=== PATIENT | female | born 1955 | race Caucasian/White ===

== ENCOUNTER 2019-04-29 18:11 | Inpatient (IN) | payer MEDICARE, OTHER, SELFPAY ==
[2019-04-29 18:12] VITALS: BP 169/82; PULSE 88; RESP 16; TEMP 36.7; O2SAT 96; BMI 22.1
--- NOTE | 2019-04-29 18:36 | CT_ITS ---
STUDY: CT ABDOMEN AND PELVIS WITHOUT CONTRAST REASON FOR EXAM: Female, 64 years old. Abdominal distention RADIATION DOSAGE (If Supplied By Facility): DLP = ( 380.46 ) mGycm TECHNIQUE: Transaxial images were obtained from the dome of the diaphragm to the symphysis pubis without oral contrast, and without intravenous contrast. Sagittal and coronal images were reconstructed. Individualized dose optimization techniques were used for this CT. COMPARISON: None. FINDINGS: Evaluation of the abdominal viscera is limited in the absence of intravenous contrast. Bibasilar atelectasis is present. The visualized portions of the heart and pericardium are within normal limits. There are no calcified gallstones present. The liver demonstrates an unremarkable unenhanced appearance. The spleen is normal in size. The pancreas demonstrates an unremarkable unenhanced appearance. The adrenal glands are within normal limits. There are no obstructing renal stones. There is mild to moderate bilateral hydroureteronephrosis. There is severe urinary bladder distention. Small bubble of gas in the urinary bladder likely secondary to instrumentation. Normal visualized stomach. There is no bowel obstruction or inflammation. The aorta is normal in caliber. There is no abdominal or pelvic free air, free fluid, fluid collection or lymphadenopathy. There are no destructive osseous lesions. CT/Abdomen/Pelvis without Cont IMPRESSION: Mild to moderate bilateral hydroureteronephrosis and severe urinary bladder distention. Query bladder outlet restriction. Small bubble of gas in the urinary bladder likely secondary to instrumentation. Correlate clinically. Electronically Signed: Max Marsh, at 20:07 EST Tel , Service support ,
--- NOTE | 2019-04-29 18:37 | ED.VISSUMM ---
- ER Visit Summary Date of Service: 04/29/19 Chief Complaint: Nausea and vomiting status post recent bladder surgery History of Present Illness: The patient is a 64 F history of hypertension. On Thursday at [facility] [place] she had bladder prolapse surgery done by Dr. Jaja Martinez. She went home the same day. Since then she has had nausea and vomiting. With decreased oral intake. Feels dehydrated. Really denies any significant abdominal pain but says it just does not feel right. She is able to urinate. She denies any fever. No chills. No diarrhea. No melena. Physical Examination: Older female no acute distress. Vital signs are stable. She is afebrile. She does not look septic or toxic. H EENT exam dry mucous members otherwise unremarkable. Neck nontender no lymphadenopathy. Lungs clear to auscultation bilaterally. Heart regular rhythm no murmur. Abdomen soft. Mildly distended. Positive bowel sounds. No peritoneal signs. Right upper right lower quadrant unremarkable. Extremities moves all 4. Nontender no edema. Neurovascular intact. Back nontender. Neurologically she is awake alert with no focal motor deficits. Test Results: CBC shows a white count of 10. Hemoglobin 12. No bands. Electrolytes significant abnormalities including a sodium of 119. Chloride of 80. Normal gap of 8 BUN 20 creatinine 2.18 consistent with acute renal injury. Calcium at 12.5. Liver enzymes and lipase normal. UA no signs of infection. CAT scan abdomen pelvis without contrast due to her creatinine showed a very distended bladder with bilateral hydronephrosis of the kidneys and consistent with bladder outlet obstruction. Read by the radiologist and reviewed by me. Emergency Department Course and Treatment: Clinically patient appears mildly dehydrated. Treated with IV fluids times a liter. IV Zofran for nausea. CAT scan labs being obtained. Treatment Plan: Nursing placed a Linn catheter patient put out about 2-1/2 L of yellow urine. Bladder was no longer distended. I spoke with the patient's uro-precision dancer Dr. Jaja Martinez of [facility] [place]. If possible she would like me to have the patient admitted here since this is primarily an electrolyte issue and the Linn has now decompressed her bladder and she will follow-up with an outpatient. I will speak to my hospitalist. If they are concerned about this I will have them and Dr. Martinez discuss a plan. Currently at 2140 the patient is doing very well. She received a second dose of Zofran for nausea. Disposition: [] Impression: Acute nausea and vomiting Acute bladder outlet obstruction status post bladder sling surgery Acute dehydration Acute kidney injury Acute hyponatremia and electrolyte abnormalities This note was generated with [employer] dictation software. It may contain incorrect words, spelling, and punctuation that were not noted in review of the chart prior to signing ED Disposition - Plan for ED Patient: Referrals: Wes Moore III, MD [Primary Care Provider] -
[2019-04-29 19:03] LABS: POSITIVE COUNT YES
[2019-04-29] MEDS: 0.9% Normal Saline 1,000 ML 1000 ML IV (19:05)
[2019-04-29] MEDS: Ondansetron 4 MG/2 ML Vial IV ×2 (19:05→20:30)
[2019-04-29 19:18] LABS: Absolute Lymphocyte Count 0.88 X10^3/uL (0.83-4.51); Absolute Neutrophil Count 8.3 X10^3/uL (2.0-7.7); Basophil# 0.02 X10^3/uL; Basophil% 0.2 % (0-1); Eosinophil# 0.06 X10^3/uL; Eosinophils% 0.6 % (0-5); Hematocrit 34.4 % (37-47); Hemoglobin 12.8 g/dL (12.0-15.0); Lymphocyte # 0.88 X10^3/ul (4.0); Lymphocyte % 8.3 % (19-41); Mean Corp Hgb Conc 37.2 g/dL (32-36); Mean Corpuscular Hgb 32.7 pg (27.0-32.0); Mean Corpuscular Volume 87.8 fL (81-99); Monocyte# 1.28 X10^3/uL; Monocyte% 12.1 % (0-10); NRBC Flagged by Analyzer 0 % (0-5); Neutrophil # 8.32 X10^3/uL (2.7-7.7); Neutrophil % 78.3 % (47-70); Platelet Count 203 K/mm3 (150-450); RBC Distribution Width CV 11.6 % (11.6-14.6); RBC Distribution Width SD 37.4 fl (35.1-43.9); Red Blood Count 3.92 M/mm3 (4.2-5.4); White Blood Count 10.6 K/mm3 (4.4-11.0)
[2019-04-29 19:28] LABS: AST(SGOT) 26 U/L (15-37); Alanine Aminotransfer ALT/SGPT 28 U/L (13-56); Albumin, Serum 2.9 g/dL (3.2-5.0); Alkaline Phosphatase 64 U/L (45-117); Anion Gap 8 (5-15); BUN 20 mg/dL (7-18); BUN/Creat Ratio 9.2 RATIO (10-20); Bilirubin, Direct 0.19 mg/dL (0.00-0.30); Calcium,Total 12.5 mg/dL (8.5-10.1); Chloride 80 mmol/L (98-107); Creatinine, Serum 2.18 mg/dL (0.55-1.02); EST Glomerular Filtration Rate 24 mL/min (>60); Est Glom Filt Rate - Afr Amer 29 mL/min (>60); Globulin 3.6 g/dL (2.2-4.2); Glucose 121 mg/dL (74-106); Lipase 38 U/L (73-393); Potassium 4.3 mmol/L (3.5-5.1); Protein, Total 6.5 g/dL (6.4-8.2)
[2019-04-29 19:32] LABS: Sodium Level 119 mmol/L (136-145)
[2019-04-29 20:12] VITALS: BP 167/72; PULSE 82; RESP 16; O2SAT 96
[2019-04-29 20:14] LABS: Mucous, Urine 0 SEEN /hpf (<or=2+)
[2019-04-29 20:28] LABS: Color, Urine Yellow (Yellow); Glucose, Dipstick Normal (Normal); Ketone-Dipstick Negative (Negative); Leukocyte Esterase-Dipstick 25 /ul (Negative); Nitrite-Dipstick Negative (Negative); Occult Blood-Urine 10 /ul (Negative); Protein-Dipstick Negative (Negative); Specific Gravity, Urine 1.015 (1.002-1.030); Urine Bilirubin Dipstick Negative (Negative); Urine Clarity Sl. Cloudy (Clear); Urine Urobilinogen Normal (Normal)
[2019-04-29] MEDS: 0.9% Normal Saline 1,000 ML 250 ML IV (20:30)
[2019-04-29 20:41] LABS: Amorphous Sediment 1+ URATE; Bacteria RARE /hpf (None Seen); Red Blood Cells-Urine 0-5 SEEN /hpf (0-5); Squamous Epithelial Cells - UA 0-5 SEEN /hpf (5-10); White Blood Cells 0-5 SEEN /hpf (0-5)
--- NOTE | 2019-04-29 21:57 | HP.PCM_ITS ---
Problem List (1) Hydroureteronephrosis Status: Acute (2) Hyponatremia Status: Acute History of Present Illness Date of Admission: 04/29/19 Chief Complaint: Nausea and vomiting The patient is a 64 year old F with a significant history of hypertension; and who had bladder prolapse surgery on 04/25/2019 presenting at emergency department with nausea and vomiting that started a day after the bladder prolapse surgery (04/26/2019). Patient had the bladder prolapse surgery at [facility] [place] with Dr. Jaja Martinez. After the procedure patient was sent home on a Foster catheter. The Foster catheter was removed the next day. Patient was started on intermittent straight catheterization. However she was unable to do the intermittent straight catheterization. She had a decreased urine output. Associated with her symptoms is bilateral flank pain; and some heaviness in her abdomen; and a feeling of heartburn.. Patient called her uro-body and fender mechanic apprentice and she was instructed to come to emergency department. At the emergency department her sodium and chloride was low. Her creatinine was severely elevated. CT of her abdomen and pelvis showed bilateral hydroureteronephrosis. At the emergency department foster catheter was placed. Emergent department doctor discussed the case with outpatient urogynecologist who did the surgery. Urogynecology's felt that there was no need to admit kulwant ent to [facility] and patient electrolytes can be corrected at the hospital. Past Medical History Medical History: Medical History (Last Reviewed 04/29/19 @ 23:[address] Suman Gupta MD) Hypertension I10 Allergies No Known Allergies Allergy (Verified 04/29/19 19:06) Home Medications: Ambulatory Orders Medication Instructions Recorded Acetaminophen [Tylenol Extra 500 - 1,000 mg PO Q6H PRN PRN 04/29/19 Strength] Ibuprofen 800 mg PO Q8H PRN 04/29/19 Lisinopril 5 mg PO DAILY 04/29/19 Loratadine [Claritin] 10 mg PO DAILY 04/29/19 [place]-3 Fatty Acids/Fish Oil [Fish 1 cap PO DAILY 04/29/19 Oil 1,000 mg Capsule] Ondansetron HCl 4 mg PO DAILY 04/29/19 Surgical History: hysterectomy, - - Fusion of the big left toe Lives: Spouse/ Significant Other Smoking Status: Never smoker Alcohol: Occasional - *Family History Maternal History Items: Cancer - Kidney cancer and prostate cancer Paternal History Items: Cancer - Breast cancer Review of Systems Constitutional: Reports: Anorexia. Denies: Chills, Fever, Weight Change HEENT: Denies: Head Aches, Sinus Congestion, Sinus Drainage Cardiovascular: Denies: Chest Pain, Palpitations Respiratory: Denies: Cough, Shortness of breath at rest, Sputum production Gastrointestinal: Reports: Abdominal Pain, Dyspepsia, Nausea, Vomiting Genitourinary: Reports: Retention Musculoskeletal: Denies: Joint Pain, Joint Tenderness Skin: Denies: Rash, Wounds Neurological: Denies: Numbness, Tingling, Focal weakness Psychiatric: Denies: Anxiety, Depression, Homicidal Ideations, Suicidal Ideations Hematologic/ Lymphatic: Denies: Easy Bruising, Easy Bleeding VTE Information - Inpt Only VTE Present on Admission: No VTE Mechan Device Prophylaxis: None VTE Pharm Prophylaxis ordered?: Yes Patient Problems: Active and Suspected Problems (Last Updated 04/29/19 @ 23:[address] Suman Gupta MD) Hydroureteronephrosis (Acute) Hyponatremia (Acute) - Physical Exam Vitals/I&O's: Vital Signs Temp Pulse Resp BP Pulse Ox 98.1 F 82 16 167/72 H 96 04/29/19 18:12 04/29/19 20:12 04/29/19 20:12 04/29/19 20:12 04/29/19 20:12 Oxygen Delivery Method Room Air Weight: 56.699 kg Body Mass Index (BMI) 22.1 Intake and Output for Last 24 Hours 04/27/19 04/28/19 04/29/19 23:59 23:59 23:59 Intake Total 1000 / 1000 Output Total 2450 / 2450 Balance -1450 / -1450 General: Alert, Oriented x3, Cooperative HEENT: Atraumatic, PERRLA, EOMI, Normocephalic Neck: Supple, No JVD, Negative Carotid Bruits Lungs: Clear to auscultation, Normal air movement Cardiovascular: Regular rate, Normal S1, Normal S2, No murmurs Abdomen: Bowel Sounds Present, Soft, Non Tender Extremities: No edema, Capillary Refill Less than 3 Seconds Skin: No rashes, No breakdown Musculoskeletal: No Tenderness to Palpation of Joints or Extremities Neurological: Cranial nerves II-XII grossly intact Psych/Mental Status: Normal Affect, Appropriate Laboratory Results 04/29/19 18:55: WBC 10.6, RBC 3.92 L, Hgb 12.8, Hct 34.4 L, MCV 87.8, MCH 32.7 H , MCHC 37.2 H, RDW Std Deviation 37.4, RDW Coeff of Ade 11.6, Plt Count 203, MPV 9.0, Immature Gran % (Auto) 0.500, Neut % (Auto) 78.3 H, Lymph % (Auto) 8.3 L, Delta % (Auto) 12.1 H, Eos % (Auto) 0.6, Baso % (Auto) 0.2, Absolute Neuts (auto) 8.3 H, Absolute Lymphs (auto) 0.88, Nucleated RBC % 0 04/29/19 18:55: Sodium 119 L*, Potassium 4.3, Chloride 80 L, Carbon Dioxide 31.0, Anion Gap 8, BUN 20 H, Creatinine 2.18 H, Estim Creat Clear Calc 21.00, Est GFR (MDRD) Af Amer 29 L, Est GFR (MDRD) Non-Af 24 L, BUN/Creatinine Ratio 9.2 L, Glucose 121 H, Calcium 12.5 H, Total Bilirubin 0.60, Direct Bilirubin 0.19, AST 26, ALT 28, Alkaline Phosphatase 64, Total Protein 6.5, Albumin 2.9 L, Globulin 3.6, Lipase 38 L 04/29/19 20:00: Urine Color Yellow, Urine Clarity Sl. Cloudy, Urine pH 6.0, Ur Specific [place] 1.015, Urine Protein Negative, Urine Glucose (UA) Normal, Urine Ketones Negative, Urine Occult Blood 10 H, Urine Nitrite Negative, Urine Bilirubin Negative, Urine Urobilinogen Normal, Ur Leukocyte Esterase 25 H, Urine RBC 0-5 SEEN, Urine WBC 0-5 SEEN, Ur Squamous Epith Cells 0-5 SEEN, Amorphous Sediment 1+ URATE, Urine Bacteria RARE, Urine Mucus 0 SEEN Current Medications Sodium Chloride () 1,000 mls @ 250 mls/hr IV .Q4H KATELYNN Last Admin: 04/29/19 20:30 Dose: 250 mls/hr Documented by: Assessment/Plan All Active Problems (Last Updated 04/29/19 @ 23:[address] Suman Gupta MD) Hydroureteronephrosis (Acute) Hyponatremia (Acute) The patient is a 64 year old F with a significant history of hypertension who h ad bladder prolapse surgery on 04/25/2019 presents emergency department with nausea and vomiting that started a day after the procedure (04/26/2019) and found to have hyponatremia; elevated creatinine and bilateral hydroureter and necrosis. Hyponatremia On presentation sodium was 119. Likely hypovolemia from nausea and vomiting. Received normal saline 1 L bolus in emergency department and was started normal saline 250 mL's per hour at emergency department. Will decrease normal saline rate to 50 mL's per hour and attempt to correct sodium by 8 to 10 mEq in next 24 hours. Check BMP every 4 hours. EMELI On presentation her creatinine was 2.18. Review of community records show that on 04/21/2019 her creatinine was 0.55. Likely combination of prerenal and obstructive uropathy. Foster catheter in place. Emergency department doctor discussed the case with Dr. Person, urologist who recommended that a Foster catheter should remain in place and patient can be discharged with Foster catheter. Dr. Person, urologist can be consulted if needed. However treatment will basically be as above. Hold NSAIDs and lisinopril. Avoid nephrotoxic's. Trend BMP. Hydroureteronephrosis Foster catheter in place. Consider discharging on Foster catheter and for patient to follow-up with urogynecologist. GERD Likely secondary to nausea and vomiting. Protonix ordered. Nausea and vomiting Supportive treatment with IV fluids as above. Antiemetics with Zofran and Compazine as needed. Patient feels she can start regular diet. Regular diet ordered. Hypertension On presentation blood pressure was not within goal. Lisinopril held. Start patient on PRN hydralazine. Trend blood pressures. DVT prophylaxis Subcutaneous Lovenox. Code Visit Inpatient E&M: 27048 Init Hosp L3
[2019-04-29 22:00] VITALS: BP 139/72; PULSE 88; RESP 18; O2SAT 95
[2019-04-29 22:10] VITALS: BP 139/72; PULSE 83; RESP 16; O2SAT 95
[2019-04-29 23:30] VITALS: BP 150/82; PULSE 86; RESP 18; TEMP 36.9; O2SAT 95
[2019-04-29 23:35] VITALS: PULSE 86
[2019-04-29 23:51] VITALS: BMI 23.0
[2019-04-30] VITALS (13 sets, daily range): BP systolic 101–144; BP diastolic 57–74; PULSE 74–90; RESP 16–18; TEMP 36.8–37.1; O2SAT 91–96; BMI 23.0
[2019-04-30] MEDS: 0.9% Normal Saline 1,000 ML 50 ML IV (00:15)
[2019-04-30] MEDS: 0.9% Saline Lock 10 ML Syringe IV ×2 (00:15→21:04)
[2019-04-30] MEDS: Acetaminophen 325 MG Tablet 650 MG PO ×3 (00:22→17:47)
[2019-04-30 00:59] LABS: Anion Gap 6 (5-15); BUN 13 mg/dL (7-18); BUN/Creat Ratio 10.9 RATIO (10-20); Calcium,Total 10.6 mg/dL (8.5-10.1); Chloride 96 mmol/L (98-107); Creatinine, Serum 1.19 mg/dL (0.55-1.02); EST Glomerular Filtration Rate 48 mL/min (>60); Est Glom Filt Rate - Afr Amer 58 mL/min (>60); Estimated Creatinine Clearance 38.47 ml/min; Glucose 107 mg/dL (74-106); Potassium 3.8 mmol/L (3.5-5.1); Sodium Level 131 mmol/L (136-145)
[2019-04-30 03:46] LABS: Anion Gap 6 (5-15); BUN 12 mg/dL (7-18); BUN/Creat Ratio 14.5 RATIO (10-20); Calcium,Total 9.4 mg/dL (8.5-10.1); Chloride 96 mmol/L (98-107); Creatinine, Serum 0.83 mg/dL (0.55-1.02); EST Glomerular Filtration Rate 73 mL/min (>60); Est Glom Filt Rate - Afr Amer 89 mL/min (>60); Estimated Creatinine Clearance 55.15 ml/min; Glucose 100 mg/dL (74-106); Potassium 3.6 mmol/L (3.5-5.1); Sodium Level 133 mmol/L (136-145)
[2019-04-30 07:16] LABS: Anion Gap 6 (5-15); BUN 9 mg/dL (7-18); BUN/Creat Ratio 13.1 RATIO (10-20); Calcium,Total 9.2 mg/dL (8.5-10.1); Chloride 96 mmol/L (98-107); Creatinine, Serum 0.69 mg/dL (0.55-1.02); EST Glomerular Filtration Rate 91 mL/min (>60); Est Glom Filt Rate - Afr Amer 110 mL/min (>60); Estimated Creatinine Clearance 45.78 ml/min; Glucose 96 mg/dL (74-106); Potassium 3.3 mmol/L (3.5-5.1); Sodium Level 133 mmol/L (136-145)
[2019-04-30] MEDS: Enoxaparin 30 MG/0.3 ML Syringe SC (09:09)
--- NOTE | 2019-04-30 10:56 | PN_ITS ---
Patient Problems: Active and Suspected Problems (Last Reviewed 04/29/19 @ 23:[address] Suman Gupta MD) Hydroureteronephrosis (Acute) Hyponatremia (Acute) Subjective: Patient seen and examined. She was admitted through the ED with a complaint of nausea and vomiting. She had her bladder prolapse surgery on 04/25/2019 at [facility] in [place] and was subsequently discharged home with a Linn catheter in place. Linn catheter was subsequently removed and she was supposed to be doing intermittent straight cath. However she had not been having adequate urine output and also started having bilateral flank pain with abdominal pain. She called a uro-grounds and nursery specialist and was told to come to the ED where she was found to have low sodium of 119. CT of the abdomen and pelvis done showed bilateral hydroureteronephrosis. Patient seen and examined. She feels much better today. She denied any nausea, vomiting,diarrhea, fever chills or shortness of breath. Review of systems otherwise negative. She was able to eat breakfast today. Labs and vitals reviewed. Sodium is up to 133. Vitals/I&O's: Vital Signs Temp Pulse Resp BP Pulse Ox 98.2 F 85 18 125/57 H 94 04/30/19 09:06 04/30/19 10:50 04/30/19 09:06 04/30/19 09:06 04/30/19 09:06 Oxygen Delivery Method Room Air Weight: 129 lb 13.636 oz Body Mass Index (BMI) 23.0 Intake and Output for Last 24 Hours 04/28/19 04/29/19 04/30/19 23:59 23:59 23:59 Intake Total 1759.17 / 1759.17 1340.00 / 1340.00 Output Total 3250 / 3250 550 / 550 Balance -1490.83 / -1490.83 790.00 / 790.00 General: Alert, Oriented x3, Cooperative, No apparent distress HEENT: Atraumatic, PERRLA, EOMI, Normocephalic Oral: Moist Mucosa Neck: Supple, No JVD, Negative Carotid Bruits Lungs: Clear to auscultation, Normal air movement, No rhonchi, No wheeze, No rales Cardiovascular: Regular rate, Regular Rhythm, Normal S1, Normal S2, No murmurs Abdomen: Bowel Sounds Present, Soft, Non Tender, Non-Distended, No Hepato- splenomegaly Extremities: No clubbing, No cyanosis, No edema, Capillary Refill Less than 3 Seconds Skin: No rashes, No breakdown Musculoskeletal: No Tenderness to Palpation of Joints or Extremities Lymphatic: No Cervical, Supraclavicular, or Inguinal Adenopathy Neurological: Cranial nerves II-XII grossly intact, Neuro grossly intact, Motor Exam 5/5 strength throughout Psych/Mental Status: Normal Affect, Appropriate, Alert and oriented to time, place, person, mood and affect Laboratory Results 04/29/19 18:55: WBC 10.6, RBC 3.92 L, Hgb 12.8, Hct 34.4 L, MCV 87.8, MCH 32.7 H , MCHC 37.2 H, RDW Std Deviation 37.4, RDW Coeff of Ade 11.6, Plt Count 203, MPV 9.0, Immature Gran % (Auto) 0.500, Neut % (Auto) 78.3 H, Lymph % (Auto) 8.3 L, [place] % (Auto) 12.1 H, Eos % (Auto) 0.6, Baso % (Auto) 0.2, Absolute Neuts (auto) 8.3 H, Absolute Lymphs (auto) 0.88, Nucleated RBC % 0 04/29/19 18:55: Sodium 119 L*, Potassium 4.3, Chloride 80 L, Carbon Dioxide 31.0, Anion Gap 8, BUN 20 H, Creatinine 2.18 H, Estim Creat Clear Calc 21.00, Est GFR (MDRD) Af Amer 29 L, Est GFR (MDRD) Non-Af 24 L, BUN/Creatinine Ratio 9.2 L, Glucose 121 H, Calcium 12.5 H, Total Bilirubin 0.60, Direct Bilirubin 0.19, AST 26, ALT 28, Alkaline Phosphatase 64, Total Protein 6.5, Albumin 2.9 L, Globulin 3.6, Lipase 38 L 04/29/19 20:00: Urine Color Yellow, Urine Clarity Sl. Cloudy, Urine pH 6.0, Ur Specific [place] 1.015, Urine Protein Negative, Urine Glucose (UA) Normal, Urine Ketones Negative, Urine Occult Blood 10 H, Urine Nitrite Negative, Urine Bilirubin Negative, Urine Urobilinogen Normal, Ur Leukocyte Esterase 25 H, Urine RBC 0-5 SEEN, Urine WBC 0-5 SEEN, Ur Squamous Epith Cells 0-5 SEEN, Amorphous Sediment 1+ URATE, Urine Bacteria RARE, Urine Mucus 0 SEEN 04/30/19 00:10: Sodium 131 L, Potassium 3.8, Chloride 96 L, Carbon Dioxide 29.0, Anion Gap 6, BUN 13, Creatinine 1.19 H, Estim Creat Clear Calc 38.47, Est GFR (MDRD) Af Amer 58 L, Est GFR (MDRD) Non-Af 48 L, BUN/Creatinine Ratio 10.9, Glucose 107 H, Calcium 10.6 H 04/30/19 03:10: Sodium 133 L, Potassium 3.6, Chloride 96 L, Carbon Dioxide 31.0, Anion Gap 6, BUN 12, Creatinine 0.83, Estim Creat Clear Calc 55.15, Est GFR (MDRD) Af Amer 89, Est GFR (MDRD) Non-Af 73, BUN/Creatinine Ratio 14.5, Glucose 100, Calcium 9.4 04/30/19 06:45: Sodium 133 L, Potassium 3.3 L, Chloride 96 L, Carbon Dioxide 31.0, Anion Gap 6, BUN 9, Creatinine 0.69, Estim Creat Clear Calc 45.78, Est GFR (MDRD) Af Amer 110, Est GFR (MDRD) Non-Af 91, BUN/Creatinine Ratio 13.1, Glucose 96, Calcium 9.2 04/30/19 10:35: Sodium Pending, Potassium Pending, Chloride Pending, Carbon Dioxide Pending, Anion Gap Pending, BUN Pending, Creatinine Pending, Est GFR (MDRD) Af Amer Pending, Est GFR (MDRD) Non-Af Pending, BUN/Creatinine Ratio Pending, Glucose Pending, Calcium Pending Diagnostic Data Abdomen/Pelvis CT 04/29/19 18:36 IMPRESSION: Mild to moderate bilateral hydroureteronephrosis and severe urinary bladder distention. Query bladder outlet restriction. Small bubble of gas in the urinary bladder likely secondary to instrumentation. Correlate clinically. Electronically Signed: Max Marsh, at 20:07 EST Tel , Service support , Current Medications Acetaminophen (Tylenol) 650 mg PO Q6H PRN PRN PRN Reason: Pain Score 1-10/Temp > 100.7 F Last Admin: 04/30/19 07:03 Dose: 650 mg Documented by: Enoxaparin Sodium (Lovenox) 30 mg SC DAILY [facility] Last Admin: 04/30/19 09:09 Dose: 30 mg Documented by: Glucagon () 1 mg IM .X1 PRN PRN Reason: Hypoglycemia Hydralazine HCl (Apresoline Iv) 5 mg IV Q4H PRN PRN PRN Reason: SBP > 160 Pantoprazole Sodium 40 mg/ (Sodium Chloride) 110 mls @ 330 mls/hr IV Q24 [facility] Last Infusion: 04/30/19 09:47 Dose: Infused Documented by: Dextrose (Dextrose 10%-Water) 250 mls @ 999 mls/hr IV .Q16M PRN; Protocol PRN Reason: HYPOGLYCEMIA Dextrose () 1,000 mls @ 50 mls/hr IV .Q20H [facility] Last Admin: 04/30/19 09:18 Dose: 50 mls/hr Documented by: Loratadine (Claritin) 10 mg PO DAILY PRN PRN PRN Reason: allergies Nutritional Formula (Lactose Free) (Ensure Enlive) 120 ml PO 4X/DAY [facility] Last Admin: 04/30/19 09:11 Dose: 120 ml Documented by: Ondansetron HCl (Zofran) 4 mg IV Q6H PRN PRN PRN Reason: NAUSEA/VOMITING Prochlorperazine Edisylate (Compazine Iv) 5 mg IV Q4H PRN PRN PRN Reason: Breakthrough Nausea/Vomiting Sodium Chloride () 10 - 40 ml IV UD PRN PRN Reason: SALINE FLUSH Last Admin: 04/30/19 00:15 Dose: 10 ml Documented by: STROKE Vital Signs/Narrative: Vital Signs Temp Pulse Resp BP Pulse Ox 04/30/19 10:50 85 04/30/19 09:06 98.2 F 84 18 125/57 H 94 04/30/19 07:54 84 18 04/30/19 07:07 80 04/30/19 07:01 91 Medical Necessity - Tobacco Use Smoking Status: Never smoker Assessment/Plan All Active Problems (Last Reviewed 04/29/19 @ 23:[address] Suman Gupta MD) Hydroureteronephrosis (Acute) Hyponatremia (Acute) 1. Acute hyponatremia * likely due to nausea adn vomiting * Sodium was 119 on admission and was up to 133 this morning. The patient was started on D5 water and sodium was rechecked, it had trended up slightly to 134. * This represents overcorrection of the sodium as aim for sodium correction should be ~ 126, per discussion with nephrology * will start patient on IV DDAVP 2mcg every 4 hours x 24 hours. check BMP q 4 hourly. Increase IV D5 Water to 200ml/hr for the next 2 hours and recheck sodium * nephrology consulted-personally discussed case with Dr. Fox on phone. * 2. Hydroureteronephrosis * CT of the abdomen and pelvis on admission showed mild to moderate bilateral hydronephrosis and severe urinary bladder distention * Currently has a Linn catheter in place. * Urology on board. Awaiting recs. * 3. EMELI: Creatinine was 2.18 on admission. Now down to 0.64 after hydrating with IV fluids. 4. History of recent bladder prolapse surgery: * Had surgery on 04/25/2019 at [facility]. * ED discussed case with a uro-grounds and nursery specialist at [facility] who felt that she could be managed here. * Will monitor. * 5. GERD: On Protonix. 6. Hypercalcemia: * Calcium was 12.5 on admission. * This is likely due to dehydration from excessive nausea and vomiting. * Now down to 9.2 with hydration. 7. Hypertension: Lisinopril on hold on account of EMELI. Blood pressure now shawna rly controlled and was 125/57 at time of review. IV hydralazine PRN. DVT prophylaxis: lovenox Code Visit OBSV E&M: 11343 Subsequent observation care L3
[2019-04-30 11:07] LABS: Anion Gap 5 (5-15); BUN 11 mg/dL (7-18); BUN/Creat Ratio 17.1 RATIO (10-20); Calcium,Total 9.2 mg/dL (8.5-10.1); Chloride 98 mmol/L (98-107); Creatinine, Serum 0.64 mg/dL (0.55-1.02); EST Glomerular Filtration Rate 98 mL/min (>60); Est Glom Filt Rate - Afr Amer 119 mL/min (>60); Estimated Creatinine Clearance 45.78 ml/min; Glucose 86 mg/dL (74-106); Potassium 3.4 mmol/L (3.5-5.1); Sodium Level 134 mmol/L (136-145)
[2019-04-30] MEDS: Desmopressin Acetate 4 MCG/ML Ampul 2 MCG IV ×2 (14:07→21:01)
[2019-04-30 14:15] LABS: Anion Gap 5 (5-15); BUN 13 mg/dL (7-18); BUN/Creat Ratio 20.1 RATIO (10-20); Chloride 97 mmol/L (98-107); Creatinine, Serum 0.65 mg/dL (0.55-1.02); EST Glomerular Filtration Rate 98 mL/min (>60); Est Glom Filt Rate - Afr Amer 118 mL/min (>60); Estimated Creatinine Clearance 45.78 ml/min; Glucose 95 mg/dL (74-106); Potassium 3.1 mmol/L (3.5-5.1); Sodium Level 133 mmol/L (136-145)
[2019-04-30 17:08] LABS: Anion Gap 4 (5-15); BUN 15 mg/dL (7-18); BUN/Creat Ratio 27.8 RATIO (10-20); Calcium,Total 8.5 mg/dL (8.5-10.1); Chloride 94 mmol/L (98-107); Creatinine, Serum 0.54 mg/dL (0.55-1.02); EST Glomerular Filtration Rate 120 mL/min (>60); Est Glom Filt Rate - Afr Amer 145 mL/min (>60); Estimated Creatinine Clearance 45.78 ml/min; Glucose 102 mg/dL (74-106); Potassium 3.8 mmol/L (3.5-5.1); Sodium Level 130 mmol/L (136-145)
[2019-04-30] MEDS: Docusate Sodium 100 MG Capsule PO (17:44)
[2019-04-30 18:47] LABS: Anion Gap 7 (5-15); BUN 12 mg/dL (7-18); BUN/Creat Ratio 22.1 RATIO (10-20); Calcium,Total 8.1 mg/dL (8.5-10.1); Chloride 90 mmol/L (98-107); Creatinine, Serum 0.54 mg/dL (0.55-1.02); EST Glomerular Filtration Rate 119 mL/min (>60); Est Glom Filt Rate - Afr Amer 145 mL/min (>60); Estimated Creatinine Clearance 45.78 ml/min; Glucose 84 mg/dL (74-106); Sodium Level 127 mmol/L (136-145)
[2019-05-01] VITALS (12 sets, daily range): BP systolic 108–146; BP diastolic 56–76; PULSE 68–87; RESP 15–18; TEMP 36.8–37.2; O2SAT 92–98
[2019-05-01] MEDS: Acetaminophen 325 MG Tablet 650 MG PO (03:56)
[2019-05-01] MEDS: guaiFENesin 10 ML UDC (200MG/10ML) PO (03:57)
[2019-05-01 06:35] LABS: Anion Gap 7 (5-15); BUN 10 mg/dL (7-18); BUN/Creat Ratio 26.4 RATIO (10-20); Chloride 90 mmol/L (98-107); Creatinine, Serum 0.38 mg/dL (0.55-1.02); EST Glomerular Filtration Rate 181 mL/min (>60); Est Glom Filt Rate - Afr Amer 218 mL/min (>60); Estimated Creatinine Clearance 45.78 ml/min; Glucose 94 mg/dL (74-106); Potassium 3.9 mmol/L (3.5-5.1); Sodium Level 126 mmol/L (136-145)
[2019-05-01] MEDS: Enoxaparin 30 MG/0.3 ML Syringe SC (08:20)
[2019-05-01] MEDS: Docusate Sodium 100 MG Capsule PO (08:21)
[2019-05-01] MEDS: 0.9% Saline Lock 10 ML Syringe IV (08:21)
[2019-05-01] MEDS: Polyethylene Glycol 3350 17 GM PACKET PO (13:18)
--- NOTE | 2019-05-01 13:49 | PN_ITS ---
Patient Problems: Active and Suspected Problems (Last Reviewed 04/29/19 @ 23:[address] Suman Gupta MD) Hydroureteronephrosis (Acute) Hyponatremia (Acute) Reason for Visit: urinary retention Subjective: Pt states she feels worse than yesterday. She states she just does not feel right. She denies dizziness/LH, BREAUX, parasthesias, vision or hearing changes, weakness or tremor. No N/V/D, abd pain. C/o Constipation for a week. Vitals/I&O's: Vital Signs Temp Pulse Resp BP Pulse Ox 98.6 F 68 17 146/66 H 96 05/01/19 08:05 05/01/19 10:58 05/01/19 08:05 05/01/19 08:05 05/01/19 11:00 Oxygen Delivery Method Room Air Weight: 129 lb 13.636 oz Body Mass Index (BMI) 23.0 Intake and Output for Last 24 Hours 04/29/19 04/30/19 05/01/19 23:59 23:59 23:59 Intake Total 1759.17 / 1759.17 4510.00 / 4750.00 950 / 950 Output Total 3250 / 3250 1620 / 1620 1130 / 1130 Balance -1490.83 / -1490.83 2890.00 / 3130.00 -180 / -180 General: Alert, Oriented x3, Cooperative HEENT: Atraumatic, PERRLA, EOMI, Normocephalic Neck: Supple, No JVD, Negative Carotid Bruits Lungs: Clear to auscultation, Normal air movement Cardiovascular: Regular rate, No murmurs Abdomen: Bowel Sounds Present, Soft, Non Tender Extremities: No edema, Capillary Refill Less than 3 Seconds Skin: No rashes, No breakdown Musculoskeletal: No Tenderness to Palpation of Joints or Extremities Neurological: Cranial nerves II-XII grossly intact Psych/Mental Status: Normal Affect, Appropriate, Alert and oriented to time, place, person, mood and affect Laboratory Results 04/30/19 13:50: Sodium 133 L, Potassium 3.1 L, Chloride 97 L, Carbon Dioxide 31.0, Anion Gap 5, BUN 13, Creatinine 0.65, Estim Creat Clear Calc 45.78, Est GFR (MDRD) Af Amer 118, Est GFR (MDRD) Non-Af 98, BUN/Creatinine Ratio 20.1 H, Glucose 95, Calcium 9.0 04/30/19 16:03: Sodium 130 L, Potassium 3.8, Chloride 94 L, Carbon Dioxide 32.0, Anion Gap 4 L, BUN 15, Creatinine 0.54 L, Estim Creat Clear Calc 45.78, Est GFR (MDRD) Af Amer 145, Est GFR (MDRD) Non-Af 120, BUN/Creatinine Ratio 27.8 H, Glucose 102, Calcium 8.5 04/30/19 18:17: Sodium 127 L, Potassium 4.0, Chloride 90 L, Carbon Dioxide 30.0, Anion Gap 7, BUN 12, Creatinine 0.54 L, Estim Creat Clear Calc 45.78, Est GFR (MDRD) Af Amer 145, Est GFR (MDRD) Non-Af 119, BUN/Creatinine Ratio 22.1 H, Glucose 84, Calcium 8.1 L 05/01/19 05:30: Sodium 126 L, Potassium 3.9, Chloride 90 L, Carbon Dioxide 29.0, Anion Gap 7, BUN 10, Creatinine 0.38 L, Estim Creat Clear Calc 45.78, Est GFR (MDRD) Af Amer 218, Est GFR (MDRD) Non-Af 181, BUN/Creatinine Ratio 26.4 H, Glucose 94, Calcium 8.0 L Current Medications Acetaminophen (Tylenol) 650 mg PO Q6H PRN PRN PRN Reason: Pain Score 1-10/Temp > 100.7 F Last Admin: 05/01/19 03:56 Dose: 650 mg Documented by: Docusate Sodium (Colace) 100 mg PO BID PRN PRN PRN Reason: Constipation Last Admin: 05/01/19 08:21 Dose: 100 mg Documented by: Enoxaparin Sodium (Lovenox) 30 mg SC DAILY KATELYNN Last Admin: 05/01/19 08:20 Dose: 30 mg Documented by: Glucagon () 1 mg IM .X1 PRN PRN Reason: Hypoglycemia Guaifenesin (Robitussin) 10 ml PO Q6H PRN PRN PRN Reason: COUGH Last Admin: 05/01/19 03:57 Dose: 10 ml Documented by: Hydralazine HCl (Apresoline Iv) 5 mg IV Q4H PRN PRN PRN Reason: SBP > 160 Pantoprazole Sodium 40 mg/ (Sodium Chloride) 110 mls @ 330 mls/hr IV Q24 [facility] Last Infusion: 05/01/19 08:45 Dose: Infused Documented by: Dextrose (Dextrose 10%-Water) 250 mls @ 999 mls/hr IV .Q16M PRN; Protocol PRN Reason: HYPOGLYCEMIA Loratadine (Claritin) 10 mg PO DAILY PRN PRN PRN Reason: allergies Nutritional Formula (Lactose Free) (Ensure Enlive) 120 ml PO 4X/DAY [facility] Last Admin: 05/01/19 13:20 Dose: Not Given Documented by: Ondansetron HCl (Zofran) 4 mg IV Q6H PRN PRN PRN Reason: NAUSEA/VOMITING Polyethylene Glycol (Miralax) 17 gm PO DAILY [facility] Prochlorperazine Edisylate (Compazine Iv) 5 mg IV Q4H PRN PRN PRN Reason: Breakthrough Nausea/Vomiting Sodium Chloride () 10 - 40 ml IV UD PRN PRN Reason: SALINE FLUSH Last Admin: 05/01/19 08:21 Dose: 10 ml Documented by: STROKE Vital Signs/Narrative: Vital Signs Pulse Pulse Ox 05/01/19 11:00 96 05/01/19 10:58 68 Medical Necessity - Tobacco Use Smoking Status: Never smoker Assessment/Plan All Active Problems (Last Reviewed 04/29/19 @ 23:[address] Suman Gupta MD) Hydroureteronephrosis (Acute) Hyponatremia (Acute) 1. Hyponatremia 2/2 urinary retention - hypervolemic, hydroureteronephrosis. This is due to recent bladder suspension surgery. Continue foster. desmo stopped. Not on further fluids. Down from yesterday likely due to ddavp/d5w. Maintain cath and recheck this afternoon and in AM. Nephro following. K+ normalized. 2. EMELI 2/2 urinary retention - resolved 3. Constipation - prns added 3. Recent bladder prolapse surgery - f/u surgeon at [place]. 5. GERD - protonix 6. Hypercalcemia resolved 7. HTN - brianna held. bp mildly elevated. DVT ppx: lovenox DC planning: will go home with foster. Sodium needs improvement. This patient was seen by Subhash Downing PA-C under the supervision of Dr. Junior.
[2019-05-01 14:51] LABS: Sodium Level 125 mmol/L (136-145)
[2019-05-01] MEDS: Magnesium Hydroxide 30 ML UDC PO (16:06)
--- NOTE | 2019-05-01 16:28 | CON.PCM_ITS ---
Consultation - Renal 05/01/19 PCP/ Referring MD: Requesting physician: [] Primary care physician: Wes Moore III, MD Reason for Consultation:: Hyponatremia - History of Present Illness History of Present Illness: The patient is a 64 year old F past medical history of hypertension who had bladder prolapse surgery on April 25, 2027 who presented with nausea vomiting that started a day after the bladder prolapse surgery which is 04/26/2019. She was sent home with a Linn catheter which was removed the next day and she started doing intermittent catheterization. She had some heaviness in the abdomen associated with heartburn and nausea and vomiting and bilateral flank pain and she came to the emergency department. Her sodium was found to be 119. She was found to have bilateral hydroureteronephrosis and a Linn catheter was placed. She was sodium was 119 and it went as high as 134 so he had to be re- lowered. At 24 hours her sodium was 127. The most recent 1 is 125. She denies nausea vomiting today. She states she tolerated p.o. today with no problems. She denies gait disturbance dizziness or falls. - Allergies Allergies: Allergies No Known Allergies Allergy (Verified 04/29/19 19:06) - Current Medications Current Medications: Current Medications Acetaminophen (Tylenol) 650 mg PO Q6H PRN PRN PRN Reason: Pain Score 1-10/Temp > 100.7 F Last Admin: 05/01/19 03:56 Dose: 650 mg Documented by: Docusate Sodium (Colace) 100 mg PO BID PRN PRN PRN Reason: Constipation Last Admin: 05/01/19 08:21 Dose: 100 mg Documented by: Enoxaparin Sodium (Lovenox) 30 mg SC DAILY KATELYNN Last Admin: 05/01/19 08:20 Dose: 30 mg Documented by: Glucagon () 1 mg IM .X1 PRN PRN Reason: Hypoglycemia Guaifenesin (Robitussin) 10 ml PO Q6H PRN PRN PRN Reason: COUGH Last Admin: 05/01/19 03:57 Dose: 10 ml Documented by: Hydralazine HCl (Apresoline Iv) 5 mg IV Q4H PRN PRN PRN Reason: SBP > 160 Loratadine (Claritin) 10 mg PO DAILY PRN PRN PRN Reason: allergies Nutritional Formula (Lactose Free) (Ensure Enlive) 120 ml PO 4X/DAY K[facility]NN Last Admin: 05/01/19 14:05 Dose: Not Given Documented by: Ondansetron HCl (Zofran) 4 mg IV Q6H PRN PRN PRN Reason: NAUSEA/VOMITING Pantoprazole Sodium (Protonix) 40 mg PO DAILY KATELYNN Polyethylene Glycol (Miralax) 17 gm PO DAILY KATELYNN Prochlorperazine Edisylate (Compazine Iv) 5 mg IV Q4H PRN PRN PRN Reason: Breakthrough Nausea/Vomiting Sodium Chloride () 10 - 40 ml IV UD PRN PRN Reason: SALINE FLUSH Last Admin: 05/01/19 08:21 Dose: 10 ml Documented by: - Past Surgical History Surgical History: hysterectomy, - - Fusion of the big left toe - Social History Smoking Status: Never smoker Alcohol: Occasional - Family History Maternal History Items: Cancer - Kidney cancer and prostate cancer Paternal History Items: Cancer - Breast cancer Patient Problems: Active and Suspected Problems (Last Reviewed 04/29/19 @ 23:[address] Suman Gupta MD) Hydroureteronephrosis (Acute) Hyponatremia (Acute) - Physical Exam Vitals/I&O's: Vital Signs Temp Pulse Resp BP Pulse Ox 98.4 F 79 17 143/70 H 92 05/01/19 14:05 05/01/19 14:05 05/01/19 14:05 05/01/19 14:05 05/01/19 14:05 Oxygen Delivery Method Room Air Weight: 58.9 kg Body Mass Index (BMI) 23.0 Intake and Output for Last 24 Hours 04/29/19 04/30/19 05/01/19 23:59 23:59 23:59 Intake Total 1759.17 / 1759.17 4510.00 / 4750.00 950 / 950 Output Total 3250 / 3250 1620 / 1620 1130 / 1130 Balance -1490.83 / -1490.83 2890.00 / 3130.00 -180 / -180 Laboratory Results 04/30/19 16:03: Sodium 130 L, Potassium 3.8, Chloride 94 L, Carbon Dioxide 32.0, Anion Gap 4 L, BUN 15, Creatinine 0.54 L, Estim Creat Clear Calc 45.78, Est GFR (MDRD) Af Amer 145, Est GFR (MDRD) Non-Af 120, BUN/Creatinine Ratio 27.8 H, Glucose 102, Calcium 8.5 04/30/19 18:17: Sodium 127 L, Potassium 4.0, Chloride 90 L, Carbon Dioxide 30.0, Anion Gap 7, BUN 12, Creatinine 0.54 L, Estim Creat Clear Calc 45.78, Est GFR (MDRD) Af Amer 145, Est GFR (MDRD) Non-Af 119, BUN/Creatinine Ratio 22.1 H, Glucose 84, Calcium 8.1 L 05/01/19 05:30: Sodium 126 L, Potassium 3.9, Chloride 90 L, Carbon Dioxide 29.0, Anion Gap 7, BUN 10, Creatinine 0.38 L, Estim Creat Clear Calc 45.78, Est GFR (MDRD) Af Amer 218, Est GFR (MDRD) Non-Af 181, BUN/Creatinine Ratio 26.4 H, Glucose 94, Calcium 8.0 L 05/01/19 14:00: Sodium 125 L Current Medications Acetaminophen (Tylenol) 650 mg PO Q6H PRN PRN PRN Reason: Pain Score 1-10/Temp > 100.7 F Last Admin: 05/01/19 03:56 Dose: 650 mg Documented by: Docusate Sodium (Colace) 100 mg PO BID PRN PRN PRN Reason: Constipation Last Admin: 05/01/19 08:21 Dose: 100 mg Documented by: Enoxaparin Sodium (Lovenox) 30 mg SC DAILY [facility] Last Admin: 05/01/19 08:20 Dose: 30 mg Documented by: Glucagon () 1 mg IM .X1 PRN PRN Reason: Hypoglycemia Guaifenesin (Robitussin) 10 ml PO Q6H PRN PRN PRN Reason: COUGH Last Admin: 05/01/19 03:57 Dose: 10 ml Documented by: Hydralazine HCl (Apresoline Iv) 5 mg IV Q4H PRN PRN PRN Reason: SBP > 160 Loratadine (Claritin) 10 mg PO DAILY PRN PRN PRN Reason: allergies Nutritional Formula (Lactose Free) (Ensure Enlive) 120 ml PO 4X/DAY [facility] Last Admin: 05/01/19 14:05 Dose: Not Given Documented by: Ondansetron HCl (Zofran) 4 mg IV Q6H PRN PRN PRN Reason: NAUSEA/VOMITING Pantoprazole Sodium (Protonix) 40 mg PO DAILY KATELYNN Polyethylene Glycol (Miralax) 17 gm PO DAILY KATELYNN Prochlorperazine Edisylate (Compazine Iv) 5 mg IV Q4H PRN PRN PRN Reason: Breakthrough Nausea/Vomiting Sodium Chloride () 10 - 40 ml IV UD PRN PRN Reason: SALINE FLUSH Last Admin: 05/01/19 08:21 Dose: 10 ml Documented by: Assessment/Plan All Active Problems (Last Reviewed 04/29/19 @ 23:[address] Suman Gupta MD) Hydroureteronephrosis (Acute) Hyponatremia (Acute) Hyponatremia Mild to moderate bilateral hydroureteronephrosis and severe urinary bladder distention s/p Linn The sodium was successfully re-lowered. Most recent sodium is 125. The patient is asymptomatic we will let the sodium rise and reevaluate tomorrow in the morning. Urology consult placed for tomorrow a.m. for bilateral hydro-and severe bladder distention Above assessment and plan was discussed at length with the patient who voiced understanding and agrees to proceed with the plan as outlined above. She was given the opportunity to ask questions and stated that those were answered to her satisfaction. Very much for allowing me to participate in the care of this patient. Please do not hesitate to call if you have any questions or concerns.
[2019-05-01] MEDS: Bisacodyl 10 MG Suppository RECTAL (18:29)
[2019-05-02] VITALS (7 sets, daily range): BP systolic 120–158; BP diastolic 63–86; PULSE 79–88; RESP 16–18; TEMP 36.6–37.2; O2SAT 93–96
[2019-05-02] MEDS: Acetaminophen 325 MG Tablet 650 MG PO (04:52)
[2019-05-02 06:55] LABS: Anion Gap 5 (5-15); BUN 11 mg/dL (7-18); BUN/Creat Ratio 22.1 RATIO (10-20); Calcium,Total 8.7 mg/dL (8.5-10.1); Chloride 102 mmol/L (98-107); EST Glomerular Filtration Rate 132 mL/min (>60); Est Glom Filt Rate - Afr Amer 159 mL/min (>60); Estimated Creatinine Clearance 45.78 ml/min; Glucose 97 mg/dL (74-106); Potassium 4.3 mmol/L (3.5-5.1); Sodium Level 134 mmol/L (136-145)
--- NOTE | 2019-05-02 07:27 | CON.PCM_ITS ---
Reason for Consult Date of Consultation: 05/02/19 Reason for Consultation: Urinary retention after surgery History of Present Illness: The patient is a 64 year old female who had a bladder prolapse repair in a sling presented to the hospital with severe retention of urine bilateral hy dronephrosis elevated creatinine. Her surgery was performed by Dr. Martinez. Her creatinine is normalized. Her hydronephrosis was due to the distended bladder. The urine is clear and draining well. She looks comfortable. Past Medical History Medical History: Medical History (Last Reviewed 04/29/19 @ 23:[address] Suman Gupta MD) Hypertension I10 Allergies No Known Allergies Allergy (Verified 04/29/19 19:06) Home Medications: Ambulatory Orders Medication Instructions Recorded Acetaminophen [Tylenol Extra 500 - 1,000 mg PO Q6H PRN PRN 04/29/19 Strength] Ibuprofen 800 mg PO Q8H PRN 04/29/19 Lisinopril 5 mg PO DAILY 04/29/19 Loratadine [Claritin] 10 mg PO DAILY PRN 04/29/19 [place]-3 Fatty Acids/Fish Oil [Fish 1 cap PO DAILY 04/29/19 Oil 1,000 mg Capsule] Ondansetron HCl 4 mg PO Q6H PRN 04/29/19 Surgical History: hysterectomy, - - Fusion of the big left toe Lives: Spouse/ Significant Other Smoking Status: Never smoker Alcohol: Occasional - *Family History Maternal History Items: Cancer - Kidney cancer and prostate cancer Paternal History Items: Cancer - Breast cancer Physical Exam - Physical Exam Vital Signs Temp 98.4 F 05/02/19 04:30 Pulse 79 05/02/19 04:30 Resp 16 05/02/19 04:30 BP 128/63 H 05/02/19 04:30 Pulse Ox 93 05/02/19 04:30 Intake & Output 04/30/19 05/01/19 05/02/19 23:59 23:59 23:59 Intake Total 4510.00 / 4750.00 1430 / 1430 390 / 390 Output Total 1620 / 1620 2830 / 2830 1600 / 1600 Balance 2890.00 / 3130.00 -1400 / -1400 -1210 / -1210 Weight: 58.9 kg Intake: Oral 1290 / 1530 1320 / 1320 390 / 390 Intake, IV Amount 3220.00 / 3220.00 110 / 110 0.9% Normal Saline 1,000 ML @ 1000.00 / 1000.00 50 mls/hr IV .Q20H KATELYNN Rx#: [id number] Dextrose 5%-Water 1,000 ML @ 2000.00 / 2000.00 200 mls/hr IV .Q5H KATELYNN Rx#: [id number] Protonix 40 MG In 0.9% Normal 220 / 220 110 / 110 Saline 100 ML @ 330 mls/hr IV Q24 KATELYNN Rx#:[id number] Output: Urine 1620 / 1620 2830 / 2830 1600 / 1600 Other: Number of Bowel Movements 1 General: Alert HEENT: Atraumatic Oral: Moist Mucosa Neck: Supple Lungs: Normal air movement Cardiovascular: Regular rate Abdomen: Soft Laboratory Tests Past 24 Hrs 05/01/19 05/02/19 14:00 06:10 Sodium 125 L 134 L Potassium 4.3 Chloride 102 Carbon Dioxide 27.0 Anion Gap 5 BUN 11 Creatinine 0.50 L Estim Creat Clear Calc 45.78 Est GFR (MDRD) Af Amer 159 Est GFR (MDRD) Non-Af 132 BUN/Creatinine Ratio 22.1 H Glucose 97 Calcium 8.7 Assessment/Plan All Active Problems (Last Reviewed 04/29/19 @ 23:[address] Suman Gupta MD) Hydroureteronephrosis (Acute) Hyponatremia (Acute) 64-year-old female with a history of bladder prolapse repair in a sling developed postop urinary retention and significantly distended bladder and bilateral hydronephrosis this should all resolve with the placement of Linn catheter she can go home with the catheter and follow-up with Dr. Martinez for any questions give me a call.
[2019-05-02] MEDS: Pantoprazole Sodium 40 MG Tablet PO (08:40)
[2019-05-02] MEDS: Enoxaparin 30 MG/0.3 ML Syringe SC (08:40)
[2019-05-02] MEDS: Polyethylene Glycol 3350 17 GM PACKET PO (08:40)
--- NOTE | 2019-05-02 11:43 | DCINST_ITS ---
- Discharge Diagnoses Current Active Problems: Current Active and Chronic Problems (Last Reviewed 04/29/19 @ 23:[address] Suman Gupta MD) Hydroureteronephrosis (Acute) Hyponatremia (Acute) You will use the following diet at home:: Cardiac Your food should be the consistency of: Regular Your liquids should be the consistency of: Regular/Thin Discharge Activity: Return to Normal Activity Additional Instructions: You will need you kidney function checked this week (BMP), talk to your PCP about having this performed. Keep foster catheter in until otherwise instructed by your surgeon. Allergies/Adverse Reactions: Allergies No Known Allergies Allergy (Verified 04/29/19 19:06) Medications to take at Discharge Acetaminophen [Tylenol] 500 - 1,000 mg PO Q6H PRN PRN 04/29/19 Lisinopril 5 mg PO DAILY 04/29/19 Loratadine [Claritin] 10 mg PO DAILY PRN 04/29/19 [place]-3 Fatty Acids/Fish Oil [Fish Oil 1,000 mg Capsule] 1 cap PO DAILY 04/29/19 Ondansetron HCl 4 mg PO Q6H PRN 04/29/19 Acetaminophen [Tylenol Tablet] 650 mg PO Q6H PRN PRN tab 05/02/19 Primary Care Physician: Wes Moore III, MD [Primary Care Provider] - Please follow up with your Primary Care Physician in: 1-2 weeks Test Results: Test results from this visit will be discussed in further detail at your follow- up appointment, if applicable. Please Follow Up With: Dr. Juan MEZA When: 1 week Proposed Discharge Date: 05/02/19
--- NOTE | 2019-05-02 11:58 | CASEMGMT ---
RN CM Assessment Introduced role of RN CM to patient.? Patient is alert, oriented and able?to participate in RN CM Assessment. ?Care providers, pharmacy, and demographics verified. Presentation: N/V started day after having bladder prolapse surgery (04/25/19). Was Dc'd with foster and foster Dc'd with intermittent straight cath-however patient unable to straight cath. Admit Dx: Hyponatremia Re-Admit: No Barriers/Issues: None PCP: Bright Tomlin Specialists: Uro/Rn Hedis- Dr Jaja Martinez Preferred [facility]acy: [facility] Insurance: [facility], MMO Rx Benefit:?Yes ?LNOK: Max Gomez LW/HPOA: None, given information with SW rack card per request. Informed can return as an outpatient to complete with SW if she chooses at a later time. Living Arrangements:?Lives with her in a 2SH, Bedroom on [facility] [address] [place]. 1 step to enter home. ADL?s: Independent with ambulation and ADLs Transportation: Both patient and drive DME: None HHC: None SNF: None Goal: Home and does not think has any needs. Does have some questions that she wrote down for nurse regarding foster catheter care- advised to s/w nurse for Foster Cath care/teaching prior to DC. Denies any issues, concerns, needs or questions with DC planning at this time. Aware CM remains available for any emerging needs. DC PLAN: Home with no anticipated needs identified at this time. RUKHSANA Dietrich
--- NOTE | 2019-05-02 12:14 | PHA.DC.MR ---
Pharmacy Service has performed discharge medication reconciliation for this patient. No new medications at time of discharge. Medications reviewed are previously reported home medications. The patient's discharge medication list was reviewed for discrepancies and discrepancies were resolved. Home Medications Lisinopril 5 mg PO DAILY 04/29/19 Loratadine [Claritin] 10 mg PO DAILY PRN 04/29/19 [place]-3 Fatty Acids/Fish Oil [Fish Oil 1,000 mg Capsule] 1 cap PO DAILY 04/29/19 Ondansetron HCl 4 mg PO Q6H PRN 04/29/19 Acetaminophen [Tylenol Tablet] 650 mg PO Q6H PRN PRN tab 05/02/19
--- NOTE | 2019-05-02 15:20 | PCM.DC.SUM ---
<Subhash Downing - Last Filed: 05/02/19 15:20> Discharge Date and Diagnosis Date of Admission: 04/29/19 Date of Discharge: 05/02/19 - Primary Discharge Diagnosis Active and Suspected Problems (Last Reviewed 04/29/19 @ 23:[address] Suman Gupta MD) EMELI, Hydroureteronephrosis, Hyponatremia 2/2 bladder outlet obstruction Recent bladder suspension surgery Constipation GERD Hypercalcemia resolved HTN Hospital Course and Treatment Imaging Results: CT/Abdomen/Pelvis without Cont IMPRESSION: Mild to moderate bilateral hydroureteronephrosis and severe urinary bladder distention. Query bladder outlet restriction. Small bubble of gas in the urinary bladder likely secondary to instrumentation. Correlate clinically. Consults: Renal - Ruddy, Juan Urology - Raza Operations: None Procedures: None Summary of Care Provided: Hospital course: The patient is a 64 year old F past medical history notable for recent bladder suspension surgery by Dr. Jaja mccormick, who presented to the emergency room with nausea and vomiting. Patient had surgery on 218, she then had her went home with a Linn however this was removed the next day and she was unable to do intermittent straight cathing at home. She had decreased urinary output. She had bilateral flank pain. She was found to have AK I and was on NSAIDs and an MARCELO inhibitor. CT of the abdomen demonstrated mild to moderate bilateral hydroureteronephrosis and severe urinary bladder distention. Linn catheter was placed. Her sodium was very low at 119. She is placed on IV fluids and placed in the PCU overnight. She had no events on telemetry. The following day her symptoms were improved and her sodium was trending up. There is concern for overcorrection of sodium so D5W and DDAVP were given. The following day her symptoms were better and her sodium were better and nephrology felt the patient could go home. She will need a BMP at follow-up. Urology was consulted regarding her recent surgery and outflow obstruction and they recommended she go home with a Linn catheter and follow-up with her surgeon. The patient has no further symptoms and was discharged home in stable condition. Her renal function is completely back to normal and it would be okay for her to restart her MARCELO inhibitor however she should not restart any NSAIDs. She needs Tylenol for pain. She will need to see her PCP in 1 to 2 weeks, she is here urologist CLEAT BLANKER in 1 week. BMP in 1 week. This patient was seen by Subhash Downing PA-C under the supervision of Doctor David. [] - Physical Exam Vitals/I&O's: Vital Signs Temp Pulse Resp BP Pulse Ox 99.0 F 85 16 120/70 96 05/02/19 14:25 05/02/19 14:25 05/02/19 14:25 05/02/19 14:25 05/02/19 14:25 Oxygen Delivery Method Room Air Weight: 129 lb 13.636 oz Body Mass Index (BMI) 23.0 Intake and Output for Last 24 Hours 04/30/19 05/01/19 05/02/19 23:59 23:59 23:59 Intake Total 4510.00 / 4750.00 1430 / 1430 790 / 790 Output Total 1620 / 1620 2830 / 2830 3100 / 3100 Balance 2890.00 / 3130.00 -1400 / -1400 -2310 / -2310 General: Alert, Oriented x3, Cooperative HEENT: Atraumatic, PERRLA, EOMI, Normocephalic Neck: Supple, No JVD, Negative Carotid Bruits Lungs: Clear to auscultation, Normal air movement Cardiovascular: Regular rate, No murmurs Abdomen: Bowel Sounds Present, Soft, Non Tender Extremities: No edema, Capillary Refill Less than 3 Seconds Skin: No rashes, No breakdown Musculoskeletal: No Tenderness to Palpation of Joints or Extremities Neurological: Cranial nerves II-XII grossly intact Psych/Mental Status: Normal Affect, Appropriate, Alert and oriented to time, place, person, mood and affect Laboratory Results 05/02/19 06:10: Sodium 134 L, Potassium 4.3, Chloride 102, Carbon Dioxide 27.0, Anion Gap 5, BUN 11, Creatinine 0.50 L, Estim Creat Clear Calc 45.78, Est GFR (MDRD) Af Amer 159, Est GFR (MDRD) Non-Af 132, BUN/Creatinine Ratio 22.1 H, Glucose 97, Calcium 8.7 Current Medications Acetaminophen (Tylenol) 650 mg PO Q6H PRN PRN PRN Reason: Pain Score 1-10/Temp > 100.7 F Last Admin: 05/02/19 04:52 Dose: 650 mg Documented by: Docusate Sodium (Colace) 100 mg PO BID PRN PRN PRN Reason: Constipation Last Admin: 05/01/19 08:21 Dose: 100 mg Documented by: Enoxaparin Sodium (Lovenox) 30 mg SC DAILY [facility] Last Admin: 05/02/19 08:40 Dose: 30 mg Documented by: Glucagon () 1 mg IM .X1 PRN PRN Reason: Hypoglycemia Guaifenesin (Robitussin) 10 ml PO Q6H PRN PRN PRN Reason: COUGH Last Admin: 05/01/19 03:57 Dose: 10 ml Documented by: Hydralazine HCl (Apresoline Iv) 5 mg IV Q4H PRN PRN PRN Reason: SBP > 160 Loratadine (Claritin) 10 mg PO DAILY PRN PRN PRN Reason: allergies Nutritional Formula (Lactose Free) (Ensure Enlive) 120 ml PO 4X/DAY [facility] Last Admin: 05/02/19 14:31 Dose: Not Given Documented by: Ondansetron HCl (Zofran) 4 mg IV Q6H PRN PRN PRN Reason: NAUSEA/VOMITING Pantoprazole Sodium (Protonix) 40 mg PO DAILY [facility] Last Admin: 05/02/19 08:40 Dose: 40 mg Documented by: Polyethylene Glycol (Miralax) 17 gm PO DAILY [facility] Last Admin: 05/02/19 08:40 Dose: 17 gm Documented by: Prochlorperazine Edisylate (Compazine Iv) 5 mg IV Q4H PRN PRN PRN Reason: Breakthrough Nausea/Vomiting Sodium Chloride () 10 - 40 ml IV UD PRN PRN Reason: SALINE FLUSH Last Admin: 05/01/19 08:21 Dose: 10 ml Documented by: Discharge Diet: Low fat/ Low Cholesterol Discharge Activity: Return to Normal Activity Home Medications: Medications to take at Discharge Lisinopril 5 mg PO DAILY 04/29/19 Loratadine [Claritin] 10 mg PO DAILY PRN 04/29/19 [place]-3 Fatty Acids/Fish Oil [Fish Oil 1,000 mg Capsule] 1 cap PO DAILY 04/29/19 Ondansetron HCl 4 mg PO Q6H PRN 04/29/19 Acetaminophen [Tylenol Tablet] 650 mg PO Q6H PRN PRN tab 05/02/19 Primary Care Physician: Wes Moore III, MD [Primary Care Provider] - Please follow up with your Primary Care Physician in: 1-2 weeks Please Follow Up With: Dr. Juan MEZA When: 1 week Disposition: Home Minutes spent on discharge:: 35 Patient Condition:: Stable Medical Necessity - Tobacco Use Smoking Status: Never smoker Meaningful Use Info Meaningful Use Diagnoses (Choose all that apply): None applicable <Gregor Hernandez - Last Filed: 05/02/19 18:14> Hospital Course and Treatment Summary of Care Provided: This patient was seen in conjunction with Subhash HORAN. I have independently interviewed and examined the patient and reviewed pertinent history, examination findings, laboratory and plan of management. I have reviewed the note and agree with the documented findings with the few additional points. In brief, patient is admitted for nausea, vomiting, urine retention with bilateral flank pain. Patient had bladder suspension surgery on April 26, 2019 and was told for straight cath intermittently. In the hospital patient had CT abdomen which showed mild to moderate bilateral hydroureteronephrosis and severe bladder distention. Urologist was consulted. Patient symptoms not much improved with Linn catheter insertion. Patient also had hyponatremia and there is a mild overcorrection therefore required D5W and DDAVP. Currently sodium is much better. Patient does not have symptoms of nausea or vomiting or significant symptoms due to hyper or hyponatremia. BUN/creatinine improving: Last 149/1.22. Discharge medication reconciliation done. Discharge follow-up instructions completed. Discharge process discussed with the patient and all questions were answered to patient's satisfaction. Total time spent, exact 35 minutes on discharge meds reconciliation, examination, coordination of care with nurses and ancillary staff, review of imaging and blood test and discussion with the patient on follow-up instructions. Patient is discharged home with Linn catheter. I have discussed my assessment with Subhash HORAN and orders have been reviewed. [] - Physical Exam Vitals/I&O's: Vital Signs Temp Pulse Resp BP Pulse Ox 99.0 F 85 16 120/70 96 05/02/19 14:25 05/02/19 14:25 05/02/19 14:25 05/02/19 14:25 05/02/19 14:25 Oxygen Delivery Method Room Air Weight: 129 lb 13.636 oz Body Mass Index (BMI) 23.0 Intake and Output for Last 24 Hours 04/30/19 05/01/19 05/02/19 23:59 23:59 23:59 Intake Total 4510.00 / 4750.00 1430 / 1430 790 / 790 Output Total 1620 / 1620 2830 / 2830 3100 / 3100 Balance 2890.00 / 3130.00 -1400 / -1400 -2310 / -2310 General: Alert, Oriented x3, Cooperative HEENT: Atraumatic, PERRLA, EOMI, Normocephalic Neck: Supple, No JVD, Negative Carotid Bruits Lungs: Clear to auscultation, Normal air movement, No rhonchi, No wheeze, No rales Cardiovascular: Regular rate, Normal S1, No murmurs Abdomen: Bowel Sounds Present, Soft, Non Tender, - - Linn catheter, clear urine. Patient is discharged with Linn catheter. Extremities: No edema, Capillary Refill Less than 3 Seconds, - Skin: No rashes, No breakdown Musculoskeletal: No Tenderness to Palpation of Joints or Extremities, Arthritic Changes Neurological: Cranial nerves II-XII grossly intact Psych/Mental Status: Normal Affect, Appropriate Laboratory Results 05/02/19 06:10: Sodium 134 L, Potassium 4.3, Chloride 102, Carbon Dioxide 27.0, Anion Gap 5, BUN 11, Creatinine 0.50 L, Estim Creat Clear Calc 45.78, Est GFR (MDRD) Af Amer 159, Est GFR (MDRD) Non-Af 132, BUN/Creatinine Ratio 22.1 H, Glucose 97, Calcium 8.7 Code Visit Inpatient E&M: 33075 Disch Hosp
--- NOTE | 2019-05-02 15:29 | PCM.PN.REN ---
Patient Problems: Active and Suspected Problems (Last Reviewed 04/29/19 @ 23:[address] Suman Gupta MD) Hydroureteronephrosis (Acute) Hyponatremia (Acute) Subjective: no new events - Physical Exam Vitals/I&O's: Vital Signs Temp Pulse Resp BP Pulse Ox 99.0 F 85 16 120/70 96 05/02/19 14:25 05/02/19 14:25 05/02/19 14:25 05/02/19 14:25 05/02/19 14:25 Oxygen Delivery Method Room Air Weight: 58.9 kg Body Mass Index (BMI) 23.0 Intake and Output for Last 24 Hours 04/30/19 05/01/19 05/02/19 23:59 23:59 23:59 Intake Total 4510.00 / 4750.00 1430 / 1430 790 / 790 Output Total 1620 / 1620 2830 / 2830 3100 / 3100 Balance 2890.00 / 3130.00 -1400 / -1400 -2310 / -2310 General: Alert, Oriented x3, Cooperative HEENT: Atraumatic, PERRLA, EOMI, Normocephalic Neck: Supple, No JVD, Negative Carotid Bruits Lungs: Clear to auscultation, Normal air movement Cardiovascular: Regular rate, No murmurs Abdomen: Bowel Sounds Present, Soft, Non Tender Extremities: No edema, Capillary Refill Less than 3 Seconds Skin: No rashes, No breakdown Musculoskeletal: No Tenderness to Palpation of Joints or Extremities Neurological: Cranial nerves II-XII grossly intact Psych/Mental Status: Normal Affect, Appropriate Laboratory Results 05/02/19 06:10: Sodium 134 L, Potassium 4.3, Chloride 102, Carbon Dioxide 27.0, Anion Gap 5, BUN 11, Creatinine 0.50 L, Estim Creat Clear Calc 45.78, Est GFR (MDRD) Af Amer 159, Est GFR (MDRD) Non-Af 132, BUN/Creatinine Ratio 22.1 H, Glucose 97, Calcium 8.7 Current Medications Acetaminophen (Tylenol) 650 mg PO Q6H PRN PRN PRN Reason: Pain Score 1-10/Temp > 100.7 F Last Admin: 05/02/19 04:52 Dose: 650 mg Documented by: Docusate Sodium (Colace) 100 mg PO BID PRN PRN PRN Reason: Constipation Last Admin: 05/01/19 08:21 Dose: 100 mg Documented by: Enoxaparin Sodium (Lovenox) 30 mg SC DAILY [facility] Last Admin: 05/02/19 08:40 Dose: 30 mg Documented by: Glucagon () 1 mg IM .X1 PRN PRN Reason: Hypoglycemia Guaifenesin (Robitussin) 10 ml PO Q6H PRN PRN PRN Reason: COUGH Last Admin: 05/01/19 03:57 Dose: 10 ml Documented by: Hydralazine HCl (Apresoline Iv) 5 mg IV Q4H PRN PRN PRN Reason: SBP > 160 Loratadine (Claritin) 10 mg PO DAILY PRN PRN PRN Reason: allergies Nutritional Formula (Lactose Free) (Ensure Enlive) 120 ml PO 4X/DAY [facility] Last Admin: 05/02/19 14:31 Dose: Not Given Documented by: Ondansetron HCl (Zofran) 4 mg IV Q6H PRN PRN PRN Reason: NAUSEA/VOMITING Pantoprazole Sodium (Protonix) 40 mg PO DAILY [facility] Last Admin: 05/02/19 08:40 Dose: 40 mg Documented by: Polyethylene Glycol (Miralax) 17 gm PO DAILY [facility] Last Admin: 05/02/19 08:40 Dose: 17 gm Documented by: Prochlorperazine Edisylate (Compazine Iv) 5 mg IV Q4H PRN PRN PRN Reason: Breakthrough Nausea/Vomiting Sodium Chloride () 10 - 40 ml IV UD PRN PRN Reason: SALINE FLUSH Last Admin: 05/01/19 08:21 Dose: 10 ml Documented by: Medical Necessity - Tobacco Use Smoking Status: Never smoker Assessment/Plan All Active Problems (Last Reviewed 04/29/19 @ 23:[address] Suman Gupta MD) Hydroureteronephrosis (Acute) Hyponatremia (Acute) Hyponatremia. Likely related to polydipsia. Sodium is now up to 134. Was 125 yesterday. Clinically asymptomatic. Okay to discharge today. Apparently she drinks large amounts of water and other liquids at home. I asked her to cut back on liquids to about 50 ounces a day for now. Urinary retention. Linn catheter in place. Discharge home with catheter as per urology. Discussed with hospitalist service
== END 2019-05-02 17:54 | disposition home or self-care (01) | DRG 699 ==
LOC: ED 19:02 → PCU 22:28
PROVIDERS: Physician Assistant; Student in an Organized Health Care Education/Training Program; Admitting Provider Hospitalist; Emergency Provider Emergency Medicine; PCP Family Medicine; Visit Provider Internal Medicine
DX: N99.0 Postprocedural (acute) (chronic) kidney failure (principal); N17.9 Acute kidney failure, unspecified; E87.1 Hypo-osmolality and hyponatremia; N13.30 Unspecified hydronephrosis; I10 Essential (primary) hypertension; R33.9 Retention of urine, unspecified; E83.52 Hypercalcemia; Z98.890 Other specified postprocedural states; N32.0 Bladder-neck obstruction; K59.00 Constipation, unspecified; K21.9 Gastro-esophageal reflux disease without esophagitis
CPT/HCPCS: 36415; 51702; 74176; 80048; 80076; 81001; 83690; 84295; 85025; 97110; 97162; 97165; 97533; 97535; 97802; 99284; J7030; A4216; J2405; J2597

== ENCOUNTER 2019-05-03 18:32 | Emergency (ER) | payer MEDICARE, OTHER, SELFPAY ==
[2019-05-03 18:33] VITALS: BP 151/81; PULSE 95; RESP 17; TEMP 37.3; O2SAT 98; BMI 22.8
--- NOTE | 2019-05-03 18:59 | CT_ITS ---
STUDY: CT ABDOMEN AND PELVIS WITHOUT CONTRAST REASON FOR EXAM: Female, 64 years old. Hematuria RADIATION DOSAGE (If Supplied By Facility): CTDIvol = ( 6.66 ) mGy, DLP = ( 366.35 ) mGycm TECHNIQUE: Transaxial images were obtained from the dome of the diaphragm to the symphysis pubis without oral contrast, and without intravenous contrast. Sagittal and coronal images were reconstructed. Individualized dose optimization techniques were used for this CT. COMPARISON: None. FINDINGS: Evaluation of the abdominal viscera is limited in the absence of intravenous contrast. There are trace bilateral pleural effusions. The visualized portions of the heart and pericardium are within normal limits. There are no calcified gallstones present. The liver demonstrates an unremarkable unenhanced appearance. The spleen is normal in size. The pancreas demonstrates an unremarkable unenhanced appearance. The adrenal glands are within normal limits. There are no renal or ureteral stones. There is no hydronephrosis. There is a Linn catheter in the urinary bladder. Normal visualized stomach. There is no bowel obstruction or inflammation. There is a large amount of stool in the colon, consistent with constipation. The appendix is not visualized, but there are no findings to suggest acute appendicitis. The aorta is normal in caliber. There is no abdominal or pelvic free air, free fluid, fluid collection or lymphadenopathy. There are no destructive osseous lesions. CT/Abdomen/Pelvis without Cont IMPRESSION: No urinary calculi. No hydronephrosis. No bowel obstruction or inflammation. Constipation. Trace bilateral pleural effusions. Electronically Signed: Billy Williamson, at 20:12 EST Tel , Service support ,
--- NOTE | 2019-05-03 19:00 | ED.DCSUM_ITS ---
History of Present Illness Chief Complaint: Linn C/O Informant: Patient Onset: Today Narrative: Patient was hospitalized April 29- for urinary retention with bilateral hydronephrosis and renal insufficiency. She also had hyponatremia. This occurred after the patient had had surgery for a bladder sling. Patient went home yesterday with Linn catheter in place. She states today she has noted some blood in the catheter and it is not draining as much as it was. She is also noted some increased back pain. Past Medical History - Allergies and Home Meds Allergies/Adverse Reactions: Allergies No Known Allergies Allergy (Verified 05/03/19 18:32) Primary Care Physician: Wes Moore III, MD [Primary Care Provider] - Prior records reviewed: Yes Past Medical History: - - Bilateral hydronephrosis and urinary retention Surgical History: hysterectomy, - - Fusion of the big left toe Lives: Spouse/ Significant Other Smoking Status: Never smoker - Family History Maternal Family History: Reports: Cancer - Kidney cancer and prostate cancer Paternal Family History: Reports: Cancer - Breast cancer Review of Systems General: Denies: Chills, Fever Eyes: Denies: Visual changes - bilaterally ENT: Denies: Bilateral ear pain Cardiovascular: Denies: Chest pain Respiratory: Denies: Dyspnea, Cough Gastrointestinal: Denies: Abdominal pain, Vomiting Genitourinary: Reports: Hematuria Musculoskeletal: Reports: Back pain Skin: Denies: Wounds Neurological: Denies: Headache Hematologic: Denies: Easy bruising, Easy bleeding Allergy: Denies: Uticaria Physical Exam Vital Signs/Narrative: Vital Signs Temp Pulse Resp BP Pulse Ox 05/03/19 18:33 99.1 F 95 17 151/81 H 98 Inital Vital Signs reviewed: Yes General: Well nourished, Well developed Head: Normocephalic ENT: Moist mucous membranes Neck: Supple Cardiovascular: Regular rate, Regular rhythm Respiratory: No distress, CTA bilaterally Abdomen: Soft, Nontender : - - Yellow urine in Linn bag with small clot noted at the bottom of the bag. There is a small amount of bloody urine noted in the collecting system. Skin: Normal color Neurological: Alert, Oriented x3 Diagnostic/Tx/Re-eval Impressions Abdomen/Pelvis CT 05/03/19 18:59 IMPRESSION: No urinary calculi. No hydronephrosis. No bowel obstruction or inflammation. Constipation. Trace bilateral pleural effusions. Electronically Signed: Billy Williamson, at 20:12 EST Tel , Service support , 05/03/19 18:59 Abdomen/Pelvis without Cont [CT] Stat Laboratory Results 05/03/19 05/03/19 05/03/19 19:15 19:15 20:05 WBC 8.2 RBC 3.67 L Hgb 11.9 L Hct 34.6 L MCV 94.3 D MCH 32.4 H MCHC 34.4 D RDW Std Deviation 41.9 RDW Coeff of Ade 12.1 Plt Count 292 MPV 8.1 Immature Gran % (Auto) 0.700 Neut % (Auto) 59.6 Lymph % (Auto) 24.3 [place] % (Auto) 11.9 H Eos % (Auto) 2.9 Baso % (Auto) 0.6 Absolute Neuts (auto) 4.9 Absolute Lymphs (auto) 1.98 Nucleated RBC % 0 Sodium 136 Potassium 3.9 Chloride 103 Carbon Dioxide 26.0 Anion Gap 7 BUN 11 Creatinine 0.53 L Estim Creat Clear Calc 45.78 Est GFR (MDRD) Af Amer 147 Est GFR (MDRD) Non-Af 122 BUN/Creatinine Ratio 20.6 H Glucose 142 H Calcium 9.0 Urine Color Yellow Urine Clarity Sl. Cloudy Urine pH 7.0 Ur Specific [place] 1.010 Urine Protein 30 H Urine Glucose (UA) Normal Urine Ketones Negative Urine Occult Blood 250 H Urine Nitrite Negative Urine Bilirubin Negative Urine Urobilinogen Normal Ur Leukocyte Esterase 25 H Urine RBC 50-100 SEEN Urine WBC 0-5 SEEN Ur Squamous Epith Cells 0 SEEN Urine Bacteria 0 SEEN Urine Mucus RARE - Medical Decision Making Patient was given 2 mg of morphine to help with pain in her back. Linn catheter is irrigated and 1 or 2 small clots was obtained. Urine is now running clear. Test results discussed with the patient. She is reassured with these findings. She is supposed to hear from her surgeon tomorrow for follow-up. ED Disposition - Plan for ED Patient: Disposition: Home or Assisted Living Diagnosis: Flank pain Instructions: FLANK PAIN, Uncertain Cause Referrals: Wes Moore III, MD [Primary Care Provider] - Additional Instructions: Follow-up with your surgeon as planned.
[2019-05-03 19:21] LABS: Absolute Lymphocyte Count 1.98 X10^3/uL (0.83-4.51); Absolute Neutrophil Count 4.9 X10^3/uL (2.0-7.7); Basophil# 0.05 X10^3/uL; Basophil% 0.6 % (0-1); Eosinophil# 0.24 X10^3/uL; Eosinophils% 2.9 % (0-5); Hematocrit 34.6 % (37-47); Hemoglobin 11.9 g/dL (12.0-15.0); Lymphocyte # 1.98 X10^3/ul (4.0); Lymphocyte % 24.3 % (19-41); Mean Corp Hgb Conc 34.4 g/dL (32-36); Mean Corpuscular Hgb 32.4 pg (27.0-32.0); Mean Corpuscular Volume 94.3 fL (81-99); Mean Platelet Vol. 8.1 fl (6.2-12.0); Monocyte# 0.97 X10^3/uL; Monocyte% 11.9 % (0-10); NRBC Flagged by Analyzer 0 % (0-5); Neutrophil # 4.86 X10^3/uL (2.7-7.7); Neutrophil % 59.6 % (47-70); Platelet Count 292 K/mm3 (150-450); RBC Distribution Width CV 12.1 % (11.6-14.6); RBC Distribution Width SD 41.9 fl (35.1-43.9); Red Blood Count 3.67 M/mm3 (4.2-5.4); White Blood Count 8.2 K/mm3 (4.4-11.0)
[2019-05-03] MEDS: Morphine 2 MG/ML Syringe IV (19:21)
[2019-05-03 19:35] LABS: Anion Gap 7 (5-15); BUN 11 mg/dL (7-18); BUN/Creat Ratio 20.6 RATIO (10-20); Chloride 103 mmol/L (98-107); Creatinine, Serum 0.53 mg/dL (0.55-1.02); EST Glomerular Filtration Rate 122 mL/min (>60); Est Glom Filt Rate - Afr Amer 147 mL/min (>60); Estimated Creatinine Clearance 45.78 ml/min; Glucose 142 mg/dL (74-106); Potassium 3.9 mmol/L (3.5-5.1); Sodium Level 136 mmol/L (136-145)
[2019-05-03 20:10] LABS: Bacteria 0 SEEN /hpf (None Seen); Color, Urine Yellow (Yellow); Glucose, Dipstick Normal (Normal); Ketone-Dipstick Negative (Negative); Leukocyte Esterase-Dipstick 25 /ul (Negative); Nitrite-Dipstick Negative (Negative); Occult Blood-Urine 250 /ul (Negative); Protein-Dipstick 30 mg/dl (Negative); Squamous Epithelial Cells - UA 0 SEEN /hpf (5-10); Urine Bilirubin Dipstick Negative (Negative); Urine Clarity Sl. Cloudy (Clear); Urine Urobilinogen Normal (Normal)
[2019-05-03 20:19] LABS: Mucous, Urine RARE /hpf (<or=2+); White Blood Cells 0-5 SEEN /hpf (0-5)
[2019-05-03 20:20] LABS: Red Blood Cells-Urine 50-100 SEEN /hpf (0-5)
[2019-05-03 20:43] VITALS: BP 130/73; PULSE 72; RESP 16; O2SAT 98
[2019-05-03 21:11] VITALS: BP 130/73; PULSE 72; RESP 16; O2SAT 98
== END 2019-05-03 21:12 | disposition home or self-care (01) ==
PROVIDERS: Emergency Provider Emergency Medicine; PCP Family Medicine
DX: R10.9 Unspecified abdominal pain (principal); R31.9 Hematuria, unspecified; M54.9 Dorsalgia, unspecified; J90 Pleural effusion, not elsewhere classified; K59.00 Constipation, unspecified; Z79.899 Other long term (current) drug therapy; Z90.710 Acquired absence of both cervix and uterus
CPT/HCPCS: 74176; 80048; 81001; 85025; 96374; 99283; A4216

== ENCOUNTER 2019-05-07 02:26 | Emergency (ER) | payer MEDICARE, OTHER, SELFPAY ==
[2019-05-07 02:27] VITALS: BP 172/78; PULSE 98; RESP 18; TEMP 36.4; O2SAT 97; BMI 21.6
[2019-05-07 02:36] VITALS: BP 172/78; PULSE 98; RESP 18; TEMP 36.4; O2SAT 97
--- NOTE | 2019-05-07 02:36 | ED.RN ---
Linn catheter tubing was kinked between her body and stat lock device on upper thigh. Tubing was straightened and urine began to flow freely. MD connolly.
--- NOTE | 2019-05-07 02:41 | ED.DCSUM_ITS ---
History of Present Illness Chief Complaint: Linn C/O Narrative: Patient presenting for evaluation due to concern for urinary retention. Patient has had a Linn catheter in place secondary to urinary retention and tonight at about 3 PM she started to notice that she had decreased drainage of urine. Patient reports that she had progressive onset of fullness of her suprapubic region with discomfort. She denies any flank pain fevers nausea or vomiting. She was seen a couple of days ago secondary to hematuria, but states that that had since resolved and she has not been having any other issues since. Patient reports that she went to the uro-fundraising sale representative couple of days ago, had her catheter removed but was still unable to pass urine and had it replaced. She reports that she needs to have it in for another couple of weeks. Review of systems otherwise negative. Past Medical History - Allergies and Home Meds Allergies/Adverse Reactions: Allergies No Known Allergies Allergy (Verified 05/03/19 18:32) Primary Care Physician: Wes Moore III, MD [Primary Care Provider] - Past Medical History: - - Urinary retention Surgical History: hysterectomy, - - Fusion of the big left toe Smoking Status: Never smoker - Family History Maternal Family History: Reports: Cancer - Kidney cancer and prostate cancer Paternal Family History: Reports: Cancer - Breast cancer Review of Systems All systems negative except as indicated General: Denies: Chills, Fever, Sweats Eyes: Denies: Visual changes - bilaterally, Diplopia ENT: Denies: Rhinorrhea, Sore throat Cardiovascular: Denies: Chest pain, Palpitations Respiratory: Denies: Dyspnea, Cough, Dyspnea on exertion Gastrointestinal: Reports: Abdominal pain Genitourinary: Reports: - - Decreased urination Musculoskeletal: Denies: Back pain, Extremity Pain Skin: Denies: Rash, Wounds Neurological: Denies: Headache, Weakness, Numbness Physical Exam Vital Signs/Narrative: Vital Signs Temp Pulse Resp BP Pulse Ox 05/07/19 02:36 97.6 F L 98 18 172/78 H 97 05/07/19 02:27 97.6 F L 98 18 172/78 H 97 Inital Vital Signs reviewed: Yes General: Well nourished, Well developed, No Acute Distress Head: Normocephalic ENT: Moist mucous membranes Neck: Supple Cardiovascular: Regular rate, Regular rhythm, No murmurs Respiratory: No distress Abdomen: Soft, - - Suprapubic tenderness and distention. No guarding or rebound is noted. Extremities: Nontender Skin: Normal color Neurological: Alert, Oriented x3 Psychological: Normal affect Diagnostic/Tx/Re-eval - Medical Decision Making Patient presented secondary to difficulty with drainage from her Linn catheter. Nursing staff evaluated the patient's catheter, noted that it was kinked near where it was attached to her leg. The obstruction was relieved, and the patient immediately started to drain clear-colored urine. Patient had improvement of her symptoms. Patient was recommended on troubleshooting ideas should she have decreased drainage from her catheter again. She was discharged in improved condition. ED Disposition - Plan for ED Patient: Disposition: Home or Assisted Living Diagnosis: Malfunction of Linn catheter Instructions: Linn Catheter, Care Referrals: Wes Moore III, MD [Primary Care Provider] - As Needed
[2019-05-07 02:51] VITALS: RESP 15
== END 2019-05-07 02:51 | disposition home or self-care (01) ==
LOC: ED 02:46
PROVIDERS: Emergency Provider Emergency Medicine; PCP Family Medicine
DX: T83.091A Other mechanical complication of indwelling urethral catheter, initial encounter (principal); R33.9 Retention of urine, unspecified; R31.9 Hematuria, unspecified; Z79.899 Other long term (current) drug therapy; Z90.710 Acquired absence of both cervix and uterus
CPT/HCPCS: 99282